=== PATIENT | male | born 1985 | race Two or more races ===

== ENCOUNTER 2024-10-18 12:59 | Emergency (ER) | payer MEDICAID, SELFPAY ==
[2024-10-18 13:00] VITALS: BMI 23.6
[2024-10-18 13:46] VITALS: BP 127/81; PULSE 119; RESP 19; TEMP 36.9; O2SAT 100
--- NOTE | 2024-10-18 13:48 | EDNOTE_ITS ---
ED General RME/HPI General Chief complaint: Anxiety Stated complaint: ANXIOUS/ALCOHOL WITHDRAWLS/NOT SLEEPING Time Seen by Provider: 10/18/24 13:41 Arrival date/time: 10/18/24 12:59 RME / HPI RME / HPI narrative: 39-year-old male history of regular alcohol consumption with continued alcohol consumption who try to abstain from alcohol starting yesterday and grew increasingly anxious throughout the day. He was unable to sleep completely through the night and tried to have a beer this morning which did calm him however he does not want to fall back to drinking. Therefore comes to the emergency department. He notes extreme anxiety, tremors, and inability to get into a sense of comfort. Patient also admits to cocaine use for the last 3 days. He denies chest pain or shortness of breath. Related Data Allergies Allergy/AdvReac Type Severity Reaction Status Date / Time No Known Allergies Allergy Verified 10/18/24 13:02 Review of Systems Review of Systems Systems Reviewed: All systems reviewed, normal except as documented ED Exam Narrative Physical exam: GENERAL APPEARANCE: AxOx4, hyper animated, fidgety, sitting in bed standing up and sitting back in bed frequently throughout encounter, fine motor tremors throughout all extremities HEENT: NC, AT. MMM. EOMI, clear conjunctiva, oropharynx clear. NECK: Supple without lymphadenopathy. No stiffness or restricted ROM. HEART: Normal rate and regular rhythm, normal S1/S1, no m/r/g LUNGS: CTAB, moving air well. No crackles or wheezes are heard. ABDOMEN: Soft, nontender, nondistended with good bowel sounds heard. BACK: No midline C/T/L spine pain or deformity, No CVAT, no obvious deformity. EXTREMITIES: Without cyanosis, clubbing or edema. MUSCULOSKELETAL: FROM of all major joints, no chest tenderness NEUROLOGICAL: Grossly nonfocal. Alert and oriented, moving all 4 extremities. CN not formally tested but appear grossly intact. Observed to ambulate with normal gait. Skin: Warm and dry without any rash. Course Quality Measures none Orders Category Date Time Status [employer] Q4H START 00 Care 10/18/24 14:26 Active CBC Stat Lab 10/18/24 14:30 Completed CK [Creatine Kinase] Stat Lab 10/18/24 14:30 Completed Comprehensive Metabolic Panel Stat Lab 10/18/24 14:30 Completed Urinalysis, C/S if Indicated Stat Lab 10/18/24 15:15 Completed Diazepam [Valium] Med 10/18/24 13:43 Discontinued 20 mg PO X1 ONE Diazepam [Valium] Med 10/18/24 14:29 Discontinued 20 mg PO X1 ONE Diazepam [Valium] Med 10/18/24 16:04 Discontinued 20 mg PO X1 ONE Sodium Chloride 0.9% 1000 ml [Ns] 1,000 ml Med 10/18/24 14:35 Discontinued IV 999 mls/hr Vital Signs Vital signs: Vital Signs Temperature 98.5 F 10/18/24 13:46 Pulse Rate 119 H 10/18/24 13:46 Respiratory Rate 19 10/18/24 13:46 Blood Pressure 127/81 10/18/24 13:46 Pulse Oximetry (%) 100 10/18/24 13:46 Oxygen Delivery Method Room Air 10/18/24 13:46 SpO2 100% on room air, patient does not type MDM Patient data External records reviewed:: [facility] previous records Clinical information provided by:: patient Social determinants that could affect healthcare access:: substance use Patient has the following chronic illnesses:: none How is presenting disease/condition affected by chronic disease/condition?: no chronic disease Evaluation data The following diagnostics were reviewed and interpreted by me:: lab results and EKG tracing(s) Lab and/or radiology exams considered but not ordered:: None Interpretation Summary: As per narrative Medications Medications considered but not ordered:: None Medication administrations:: Medication Administration History Discontinued Medications Diazepam (Diazepam 5 Mg Tablet) 20 mg PO X1 ONE Stop: 10/18/24 13:44 Last Admin: 10/18/24 13:56 Dose: 20 mg Documented By: BRANDAN Diazepam (Diazepam 5 Mg Tablet) 20 mg PO X1 ONE Stop: 10/18/24 14:30 Last Admin: 10/18/24 14:40 Dose: 20 mg Documented By: MAYA Diazepam (Diazepam 5 Mg Tablet) 20 mg PO X1 ONE Stop: 10/18/24 16:05 Sodium Chloride (Ns) 1,000 mls @ 999 mls/hr IV .Q1H1M ONE Stop: 10/18/24 15:35 Last Infusion: 10/18/24 15:25 Dose: Infused Documented By: Admin: 10/18/24 14:41 Dose: 999 mls/hr Documented By: MAYA Above Consultations Consultation(s) initiated? (list below): No Diagnosis Differential Diagnosis ED Complaint MDM: Alcohol withdrawal, cocaine toxicity, electrolyte abnormalities, rhabdomyol Most likely diagnosis given after review of the tests above:: See below Admission Indicated Admission indicated?: not indicated Explain why admission is indicated or not indicated:: None Admission Request Was there a request for admission?: No Disposition Plan Disposition Plan: Discharge Discharge Attestation Discharge Attestation: The patient and all family members were given an opportunity to ask questions and understood the discharge instructions. Discharge instructions specifically effects, indications for sooner follow up or return to the emergency department, and the expected course of current diagnosis. Patient condition: Stable Medical Decision Making MDM Narrative MDM Narrative: Mr. Burr presents to the emergency department with anxiety and generalized tremors and hyperactivity symptoms consistent with cocaine stimulant use of which he endorses in addition to possible superimposed alcohol withdrawal. Primary reversal for both of these drugs will be benzodiazepines and tolerated approximately 60 mg of diazepam well and was calm. I suspect his drug and alcohol consumption is quite high as he was still very awake despite this high dose of diazepam. Regardless at this dose he will have a continued auto taper at home and therefore requires no further taper to be taken for his alcohol use. Given his amount of hyperactivity witnessed here in the emergency department, he would pace around the room, climbing back up on the bed standing on the bed coming back down to the ground, laboratory testing was sent to assess for rhabdomyolysis with possible concomitant electrolyte abnormalities. He was given 1 L of IV fluids in the meantime as well while labs returned significant for a minimal elevation in the CK at 300 which is not consistent with zoey rhabdomyolysis. He is fluid resuscitation here in the emergency department is appropriate he will require no further fluid resuscitation at this point is appropriate for outpatient follow-up. I have counseled him on the dangers of continued excessive drugs and alcohol use. I have also advised him that complete cessation from drugs and alcohol is the goal. Differential Diagnosis Differential Diagnosis: Alcohol withdrawal, cocaine toxicity, electrolyte abnormalities, rhabdomyol Lab Data 10/18/24 14:30 10/18/24 14:30 Labs: Lab Results 10/18/24 10/18/24 Range/Units 14:30 15:15 WBC 5.1 (3.8-10.6) Thou/mm3 RBC 4.97 (4.50-5.90) Miln/mm3 Hgb 15.6 (13.5-16.0) g/dL Hct 43.6 (41.0-53.0) % MCV 88 (80-100) fL MCH 31.4 (25.0-35.0) pg MCHC 35.8 (31.0-37.0) g/dl RDW Std Deviation 40.0 (35.1-43.9) fL Plt Count 514 H (140-440) Thou/mm3 Neut % (Auto) 52 (37-80) % Lymph % (Auto) 33 (10-50) % [place] % (Auto) 14 H (0-12) % Eos % (Auto) 0 (0-10) % Baso % (Auto) 1 (0-2.5) % Neut # (Auto) 2.6 (1.8-7.7) Thou/mm3 Lymph # (Auto) 1.7 (1.0-4.8) Thou/mm3 [place] # (Auto) 0.7 (0.0-0.8) Thou/mm3 Eos # (Auto) 0.0 (0.0-0.5) Thou/mm3 Baso # (Auto) 0.0 (0.0-0.2) Thou/mm3 Immature Gran # (Auto) 0.00 (0.00-0.00) Thou/mm3 Absolute Nucleated RBC 0.00 (0.00-0.00) Thou/mm3 Immature Gran % 0 (0-0) % Nucleated RBC % 0 (0) /100 WBC Sodium 138 (136-145) mMol/L Potassium 3.6 (3.4-5.1) mMol/L Chloride 104 (98-107) mMol/L Carbon Dioxide 24.0 (20.0-31.0) mMol/L Anion Gap 10 (7-16) BUN < 5 L (9-23) mg/dL Creatinine 0.8 (0.6-1.3) mg/dL Estim Creat Clear Calc 124.0 (>60) mL/min eGFR > 60 (60 - ) See Note BUN/Creatinine Ratio 6 L (12-20) Ratio Glucose 105 (74-106) mg/dL Calculated Osmolality 272 L (275-295) Calcium 10.1 (8.3-10.6) mg/dL Corrected Calcium 10.1 (8.5-10.1) mg/dL Total Bilirubin 0.5 (0.3-1.2) mg/dL AST 78 H (0-34) U/L ALT 83 H (10-49) U/L Alkaline Phosphatase 88 (46-116) U/L Total Creatine Kinase 342 H (34-171) U/L Total Protein 7.6 (5.7-8.2) gm/dL Albumin 5.1 H (3.5-5.0) gm/dL Globulin 2.5 (2.3-3.5) gm/dL Albumin/Globulin Ratio 2.0 (1.2-2.2) Ur Collection Type Clean Catch Urine Color Colorless A (Lt Yel-Yel) Urine Clarity Clear (Clear/Hazy) Urine pH 7.0 (5.0-7.0) Ur Specific [place] 1.004 (1.001-1.035) Urine Protein Negative (Neg - Trace) Urine Glucose (UA) Negative (Negative) Urine Ketones Negative (Negative) Urine Blood Negative (Negative) Urine Nitrite Negative (Negative) Urine Bilirubin Negative (Negative) Urine Urobilinogen (Auto) Negative (0.0-1.0) mg/dL Ur Leukocyte Esterase Negative (Negative) Urine RBC 1 (0-3) /hpf Urine WBC 0 (0-5) /hpf Ur Squamous Epith Cells 0 (0-5) /hpf Urine Bacteria None (None) Ur Culture Indicated? Not Indicated Discharge Plan Plan Patient Disposition: HOME (Self Care) Problem List Clinical Impression: Drug abuse, Alcohol withdrawal Patient/Caregiver Discharge Instructions Education Materials: Alcohol Withdrawal: What to Expect, ED Drug Abuse Additional Instructions: Do not drink alcohol or use drugs in excess, consider stopping completely for better health. You can follow-up with your primary care doctor or [facility] if you feel ready for assistance with drug and/or alcohol rehabilitation. Feel free return to the emergency department sooner symptoms worsen or if you notice any new, concerning issues. Print Language: Romansh Stand Alone Forms: Melissa Award Info., Patient Portal Info Letter
[2024-10-18] MEDS: DIAZEPAM 5 MG TABLET 20 MG PO ×3 (13:56→16:36)
[2024-10-18 14:06] VITALS: PULSE 111
--- NOTE | 2024-10-18 14:10 | PC.NURSE ---
Patient to er with mother at bedside with c/o drinking vodka for the past 2 days and today he had 8 beers this am because he wanted to just go to sleep , patient very anxious, fidgeting, stating he stopped drinking for awhile then started back up again. Patient requesting more medication to knock me out Patient educated on medications use and side affects. Will notify provider of patients request.
--- NOTE | 2024-10-18 14:16 | PC.NURSE ---
Patient also, admitted to taking cocaine 2 days ago, provider is aware.
[2024-10-18] MEDS: SODIUM CHLORIDE 0.9% 1000 ML 1,000 ML 999 ML IV (14:41)
[2024-10-18 15:21] LABS: Basophils % (Auto) 1 % (0-2.5); Eosinophils % (Auto) 0 % (0-10); Hematocrit 43.6 % (41.0-53.0); Hemoglobin 15.6 g/dL (13.5-16.0); Immature Granulocytes % (Auto) 0 % (0-0); Lymphocytes # (Auto) 1.7 Thou/mm3 (1.0-4.8); Lymphocytes % (Auto) 33 % (10-50); Mean Corpuscular HGB Conc 35.8 g/dl (31.0-37.0); Mean Corpuscular Hemoglobin 31.4 pg (25.0-35.0); Mean Corpuscular Volume 88 fL (80-100); Monocytes # (Auto) 0.7 Thou/mm3 (0.0-0.8); Monocytes % (Auto) 14 % (0-12); Neutrophils # (Auto) 2.6 Thou/mm3 (1.8-7.7); Neutrophils % (Auto) 52 % (37-80); Nucleated Red Blood Cell % 0 /100 WBC (0); Platelet Count 514 Thou/mm3 (140-440); Red Blood Count 4.97 Miln/mm3 (4.50-5.90); White Blood Count 5.1 Thou/mm3 (3.8-10.6)
[2024-10-18 15:22] VITALS: BP 121/77; PULSE 92; RESP 15; TEMP 36.8; O2SAT 100
[2024-10-18 15:27] LABS: Collection Type, Urine Clean Catch; Squamous Epithelial Cell,Urine 0 /hpf (0-5); WBC,Urine 0 /hpf (0-5)
[2024-10-18 15:39] LABS: Alanine Aminotransferase 83 U/L (10-49); Albumin, Serum 5.1 gm/dL (3.5-5.0); Alkaline Phosphatase 88 U/L (46-116); Anion Gap 10 (7-16); Aspartate Amino Transferase 78 U/L (0-34); BUN/Creatinine Ratio 6 Ratio (12-20); Bilirubin,Total 0.5 mg/dL (0.3-1.2); Blood Urea Nitrogen < 5 mg/dL (9-23); Calcium 10.1 mg/dL (8.3-10.6); Calcium (Corrected) 10.1 mg/dL (8.5-10.1); Chloride 104 mMol/L (98-107); Creatine Kinase 342 U/L (34-171); Creatinine (Component) 0.8 mg/dL (0.6-1.3); Globulin 2.5 gm/dL (2.3-3.5); Glucose 105 mg/dL (74-106); Osmolality,Calculated 272 (275-295); Potassium 3.6 mMol/L (3.4-5.1); Sodium 138 mMol/L (136-145); Total Protein 7.6 gm/dL (5.7-8.2); eGFR > 60 See Note
[2024-10-18 15:40] LABS: Bilirubin,Urine Negative (Negative); Blood,Urine Negative (Negative); Clarity,Urine Clear (Clear/Hazy); Color,Urine Colorless (Lt Yel-Yel); Culture Indicated,Urine Not Indicated; Glucose, Urine Negative (Negative); Ketones,Urine Negative (Negative); Leukocyte Esterase,Urine Negative (Negative); Nitrite,Urine Negative (Negative); Protein,Urine Negative (Neg - Trace); RBC,Urine 1 /hpf (0-3); Specific Gravity,Urine 1.004 (1.001-1.035); Urobilinogen,Urine Negative mg/dL (0.0-1.0)
--- NOTE | 2024-10-18 15:57 | PC.CC ---
ED Rn Iv Therapy received information from assigned nurse regarding Pt inquiring resources for alcohol abuse. Health And Physical Education Professor engaged Pt in open conversation regarding resources. Pt disclosed struggling with anxiety. Health And Physical Education Professor offered to submit mental health referral to [facility]. Pt agreed for referral to be submitted. Mental health referral to [facility] submitted and resource packet give to Pt.
--- NOTE | 2024-10-18 16:13 | PC.NURSE ---
PHARMACY CALLED AT THIS TIME FOR PT'S MEDICATION FOR VALIUM; [employer], AND MADE PHARMACY AWARE; PER PHARMACY, WILL COME DOWN AND RESTOCK IT.
[2024-10-18 16:39] VITALS: BP 118/90; PULSE 104; RESP 18; TEMP 36.9; O2SAT 100
== END 2024-10-18 16:50 | disposition home or self-care (01) ==
LOC: SERX 16:57
PROVIDERS: Emergency Provider Emergency Medicine; PCP Family Medicine
DX: F14.10 Cocaine abuse, uncomplicated (principal); F10.139 Alcohol abuse with withdrawal, unspecified; Z71.41 Alcohol abuse counseling and surveillance of alcoholic; Z71.51 Drug abuse counseling and surveillance of drug abuser
CPT/HCPCS: 36415; 80053; 81001; 82550; 85025; 96360; 99284; J7030; A9270